=== PATIENT | male | born 1945 | race Caucasian/White ===

== ENCOUNTER 2016-07-14 07:49 | Day surgery (SDC) | payer MEDICARE, OTHER ==
[~2016-07-14 07:49] MED LIST: CEFAZOLIN SODIUM 2 GRAM DUPLEX 2 G in Premix (D5W) 50 ml 1 EACH IV PRN; CEFAZOLIN SODIUM 2 GRAM PREMIX 100 ML IV ONE; IV START KIT ONE; LACTATED RINGERS 1,000 ML IV SCH; LIDOCAINE 1% 2 ML VIAL ID PRN
[2016-07-14] MEDS ORDERED: LIDOCAINE 1% (PRES FREE) 30 ML VIAL ONE ×2 (09:11→09:27)
[2016-07-14] MEDS ORDERED: BUPIVACAINE 0.5% W/EPI SDV 30 ML VIAL ONE (09:11)
[2016-07-14] MEDS ORDERED: FENTANYL 5 ML ONE (09:13)
[2016-07-14] MEDS ORDERED: MIDAZOLAM HCL 1 MG/ML 2ML VIAL ONE (09:13)
[2016-07-14] MEDS ORDERED: LIDOCAINE 1%/EPI (MULTI DOSE) 20 ML VIAL ONE (09:29)
[2016-07-14] MEDS ORDERED: BUPIVACAINE 0.5% (PRES FREE) 30 ML VIAL ONE (09:29)
[2016-07-14] MEDS ORDERED: PROPOFOL 20 ML IV ONE (10:17)
[2016-07-14] MEDS ORDERED: LIDOCAINE 2% (PRES FREE) 5 ML VIAL ONE (10:17)
[2016-07-14] MEDS ORDERED: DEXAMETHASONE SOD PHOS 4 MG/1 ML VIAL ONE ×2 (10:19→10:23)
[2016-07-14] MEDS ORDERED: ONDANSETRON 4 MG/2ML 2 ML VIAL ONE (10:19)
[2016-07-14] MEDS ORDERED: ATROPINE SULFATE 0.4 MG/1 ML VIAL IV PRN (10:21)
[2016-07-14] MEDS ORDERED: ONDANSETRON 4 MG/2ML 2 ML VIAL IV PRN (10:21)
[2016-07-14] MEDS ORDERED: NALOXONE HCL 0.4 MG/ML VIAL IV PRN (10:21)
[2016-07-14] MEDS ORDERED: MEPERIDINE 25 MG/ML SYRINGE IV PRN (10:21)
[2016-07-14] MEDS ORDERED: LACTATED RINGERS 1,000 ML IV SCH ×2 (10:30→12:21)
--- NOTE | 2016-07-14 11:33 | PCMBPN ---
Brief Post Op Note: Date of Procedure: 07/14/16 Start Time: Preoperative Diagnosis: 1. Umbilical hernia Postoperative Diagnosis: 1. Same Procedure: Umbilical hernia repair with mesh Surgeon: Marry Bah MD Assist:Lina Liang Anesthesia: General with LMA Findings: see dictation Condition: stable Complications: none IV Fluids: see anesthesia report Urine Output: not recorded Estimated Blood Loss: 5 mLs Tourniquet Time: N/A Specimens: N/A Implants: 6.4cm umbilical hernia mesh Drains: [N/A]
[2016-07-14] MEDS ORDERED: FENTANYL 100 MCG/2 ML VIAL ONE (11:38)
[2016-07-14] MEDS: FENTANYL 100 MCG/2 ML VIAL IV PRN ×2 (11:39→11:46)
[2016-07-14] MEDS ORDERED: HYDROMORPHONE HCL 1 MG/ML SYRINGE ONE ×2 (11:59→12:34)
[2016-07-14] MEDS: HYDROMORPHONE HCL 1 MG/ML SYRINGE IV PRN ×3 (12:00→12:12)
[2016-07-14] MEDS ORDERED: HYDROMORPHONE HCL 1 MG/ML SYRINGE IV PRN (12:21)
[2016-07-14] MEDS ORDERED: OXYCODONE/ACETAMINOPHEN 5/325 MG TABLET PO PRN (12:21)
[2016-07-14] MEDS ORDERED: OXYCODONE/ACETAMINOPHEN 5/325 MG TABLET ONE (14:09)
--- NOTE | 2016-07-14 14:43 | OP ---
KISHAN CAVAZOS [id number] : 1945 DATE OF SERVICE: July 14, 2016 PREOPERATIVE DIAGNOSIS: Umbilical hernia. POSTOPERATIVE DIAGNOSIS: Umbilical hernia. PROCEDURE PERFORMED: UMBILICAL HERNIA REPAIR WITH MESH. SURGEON: Marry Bah M.D. LODE MINER BLASTING: Remi Patino ANESTHESIA: General with LMA. FINDINGS: A 3 cm fascial defect at the umbilicus with fat-containing hernia. TECHNIQUE: The patient was brought back to the operating room and placed under general anesthesia. The abdomen was prepped and draped in sterile surgical fashion. Local anesthetic was placed around the umbilicus and then a #15 blade scalpel was used to make a 4 cm transverse incision just inferior to the umbilicus. Electrocautery was used to cut through the subcutaneous tissue and to remove the umbilical hernia sac from the subcutaneous tissue. Then the hernia sac was taken off of the fascia as well as the umbilicus was taken off of the fascia. Once the hernia sac was freed up completely from the fascia and removed, the hernia contents were reduced in the abdomen, and the defect was measured at 3 cm. We picked a 6.4 cm umbilical hernia mesh and then placed that in the defect and sewed it circumferentially with #2-0 Prolene popoffs and sutured it so that it was completely in place without any tension and without any defects that could be palpated. Once it was nice and secure, we irrigated the cavity. We tacked the umbilicus superior to where the mesh was. We secured it just to the fascia and then we closed the deep dermis with #2-0 Vicryl, closed the skin with #4-0 Monocryl and placed SteriStrips. The patient was awakened and returned to recovery room in stable condition. All needle, instrument and sponge counts were correct at the end of the case.
== END 2016-07-14 15:46 | disposition home or self-care (01) ==
LOC: SDC 07:49
PROVIDERS: ATTEND Surgery
PROC: 0WUF0JZ Supplement Abdominal Wall with Synthetic Substitute, Open Approach (ICD-10-PCS; principal; 2016-07-14)
DX: K42.9 Umbilical hernia without obstruction or gangrene (principal); I10 Essential (primary) hypertension
CPT/HCPCS: 49585; J1170 ×2; J3010 ×2; J1100 ×2; A9270; J2250; J2001; J2405; J7120; J0690